=== PATIENT | male | born 1975 | race Caucasian/White ===

== ENCOUNTER 2019-11-29 18:02 | Emergency (ER) | payer OTHER ==
[~2019-11-29] VITALS: Ht 167.6 cm; Wt 74.8 kg
[2019-11-29 18:17] VITALS: BP 147/88; Ht 167.6 cm; Wt 74.8 kg
== END 2019-11-29 19:30 | disposition home or self-care (01) ==
LOC: ED 18:02
DX: G51.0 Bell's palsy (principal)